=== PATIENT | female | born 1970 | race Two or more races ===

== ENCOUNTER → 2018-01-24 | Outpatient (CLI) | payer OTHER ==
[~2018-01-24] MED LIST: ACET325 PO; Percocet 5-3251 EACH PO
[2018-01-26 12:36] LABS: HPV Genotype 16 Not Detected (NOTDET); HPV Genotype 18 Not Detected (NOTDET)
[2018-02-04 11:52] LABS: HPV High Risk Other Not Detected (NOTDET)
== END | disposition home or self-care (01) ==
LOC: LAB 14:00 → LAB SHORT 14:00
PROVIDERS: Obstetrics & Gynecology
DX: Z01.419 Encounter for gynecological examination (general) (routine) without abnormal findings (principal)
CPT/HCPCS: 87624; G0123

== ENCOUNTER 2021-02-08 06:20 | Day surgery (SDC) | payer OTHER ==
[~2021-02-08] VITALS: Ht 160 cm; Wt 67.1 kg
--- NOTE | 2021-02-08 07:11 | NUR ---
02/08/21 0711 Siena Jarquin CALL LIGHT WITHIN REACH. TWO IV ATTEMPTS ONE ON RIGHT HAND AND INFILTRATED. SECOND ATTEMPT ON RIGHT WRIST AND SUCCESSFUL. PT TOLERATED IV ATTEMPTS WELL.
== END 2021-02-08 09:10 | disposition home or self-care (01) ==
LOC: ORSCSDS 06:20
PROVIDERS: Orthopaedic Surgery
PROC: 01S40ZZ Reposition Ulnar Nerve, Open Approach (ICD-10-PCS; principal; 2021-02-08 07:30)
PROC: 01N50ZZ Release Median Nerve, Open Approach (ICD-10-PCS; principal; 2021-02-08 07:30)
DX: G56.02 Carpal tunnel syndrome, left upper limb (principal); G56.21 Lesion of ulnar nerve, right upper limb
CPT/HCPCS: A9270; J0690; J1100; J2250; J2405; J2704; J2795; J3010; J7120

== ENCOUNTER 2021-10-14 01:19 | Emergency (ER) | payer OTHER ==
[~2021-10-14] VITALS: Ht 160 cm; Wt 63.5 kg
[2021-10-14 02:14] LABS: BASOPHILS ABSOLUTE AUTO 0.04 K/mm3 (0.00-0.23); BASOPHILS PERCENT AUTO 1 % (0-2); EOSINOPHILS ABSOLUTE AUTO 0.31 K/mm3 (0.00-0.68); EOSINOPHILS PERCENT AUTO 5 % (0-6); Hematocrit 39.1 % (33.0-51.0); Hemoglobin 13.1 g/dL (11.5-16.0); IMMATURE GRAN ABSOLUTE AUTO 0.02 K/mm3 (0.00-0.10); IMMATURE GRAN PERCENT AUTO 0 % (0-1); LYMPHOCYTES ABSOLUTE AUTO 3.09 K/mm3 (0.84-5.20); LYMPHOCYTES PERCENT AUTO 47 % (21-46); MONOCYTES ABSOLUTE AUTO 0.61 K/mm3 (0.16-1.47); MONOCYTES PERCENT AUTO 9 % (4-13); Mean Corpuscular HGB 28.7 pg (26.0-34.0); Mean Corpuscular HGB Conc 33.5 g/dL (31.5-36.5); Mean Corpuscular Volume 86 fL (80-100); Mean Platelet Volume 9.8 fL (9.1-12.4); NEUTROPHILS ABSOLUTE AUTO 2.48 K/mm3 (1.96-9.15); NEUTROPHILS PERCENT AUTO 38 % (41-73); Platelet Count 349 K/mm3 (150-400); RDW Standard Deviation 37.5 fL (35.1-46.3); Red Blood Cell Count 4.57 M/mm3 (3.80-5.20); White Blood Cell Count 6.55 K/mm3 (4.00-11.30)
[2021-10-14 02:36] LABS: Alanine Aminotransfer (ALT/SGP 30 U/L (12-78); Albumin, Blood 3.2 g/dL (3.4-5.0); Albumin/Globulin Ratio 0.8 (0.8-1.8); Alk Phos 92 U/L (50-136); Anion Gap 8 mmol/L (6-16); Aspartate Aminotrans (AST/SGOT 22 U/L (12-37); Bilirubin, Total 0.2 mg/dL (0.1-1.0); Blood Urea Nitrogen 10 mg/dL (8-24); Bun/Creatinine Ratio 15.5 (12.0-20.0); CO2, Blood 24 mmol/L (21-32); Calcium, Blood 8.9 mg/dL (8.5-10.1); Chloride, Blood 110 mmol/L (98-108); Creatinine, Blood 0.65 mg/dL (0.40-1.00); Glomerular Filtration Rate >60 (60-); Glucose, Blood 101 mg/dL (70-99); Potassium, Blood 3.9 mmol/L (3.5-5.5); Sodium, Blood 142 mmol/L (136-145); Total Protein, Blood 7.2 g/dL (6.4-8.2); Troponin I <0.015 ng/mL (0.000-0.040)
== END 2021-10-14 04:29 | disposition home or self-care (01) ==
LOC: ER 01:19
PROVIDERS: Emergency Medicine
DX: R07.9 Chest pain, unspecified (principal)
CPT/HCPCS: 36415; 71045; 80053; 83690; 84484; 85025; 85379; 93005; 93010; 99285-25

== ENCOUNTER → 2023-06-07 | Outpatient (CLI) | payer OTHER ==
[2023-06-08 14:09] LABS: HPV 16 Negative (Negative); HPV 18 Negative (Negative); HPV OTHER HR TYPES Negative (Negative)
== END ==
LOC: LAB 18:56 → LAB SHORT 18:56
PROVIDERS: Obstetrics & Gynecology
DX: Z01.419 Encounter for gynecological examination (general) (routine) without abnormal findings (principal)
CPT/HCPCS: 87624; G0145

== ENCOUNTER 2023-09-04 09:03 | Day surgery (SDC) | payer OTHER ==
[2023-09-04] VITALS (16 sets, daily range): BP systolic 104–150; BP diastolic 53–79
[~2023-09-04] VITALS: Ht 157.5 cm; Wt 62.7 kg
--- NOTE | 2023-09-04 10:32 | NUR ---
PATIENT'S DAUGHTER, MARCELINO, AT BEDSIDE WITH PATIENT. PATIENT COMMUNICATES WELL AND ANSWERS QUESTIONS APPROPRIATELY.
--- NOTE | 2023-09-04 11:12 | NUR ---
09/04/23 1112 Bryant Kendall HISTORY, CHART, MEDICATIONS AND ALLERGIES REVIEWED BEFORE START OF PROCEDURE. PATIENT CONFIRMS NPO STATUS AND AGREES WITH SCHEDULED PROCEDURE. 3-LEAD EKG REVIEWED WITH PHYSICIAN PRIOR TO START OF PROCEDURE. MONITOR INTACT WITH CONTINUOUS PULSE OXIMETRY,CAPNOGRAPHY, 3-LEAD EKG, INTERMITTENT BP. SUPPLEMENTAL O2 TO BE TITRATED THROUGHOUT PROCEDURE TO MAINTAIN O2 SATURATION ABOVE 90%. PATIENT DETERMINED TO BE ASA APPROPRIATE FOR PROPOFOL SEDATION PRIOR TO START OF PROCEDURE BY
--- NOTE | 2023-09-04 11:51 | NUR ---
Discharge instructions reviewed with patient. Patient verbalizes understanding. Copy given to patient to take home. Patient States Post-Procedure ride home has been arranged. Discharged via wheelchair to private car for ride home.
== END 2023-09-04 11:45 | disposition home or self-care (01) ==
LOC: ORSCMMR 09:03 → ORD 10:00 → ORSCMMR 11:45
PROVIDERS: Internal Medicine Gastroenterology
PROC: 0DBN8ZX Excision of Sigmoid Colon, Via Natural or Artificial Opening Endoscopic, Diagnostic (ICD-10-PCS; principal; 2023-09-04 10:00)
DX: Z12.11 Encounter for screening for malignant neoplasm of colon (principal); D12.5 Benign neoplasm of sigmoid colon
CPT/HCPCS: 88305; J2704; J7120

== ENCOUNTER 2024-06-30 14:47 | Emergency (ER) | payer OTHER ==
[~2024-06-30] VITALS: Ht 160 cm; Wt 65.8 kg
[2024-06-30] MEDS ORDERED: DiphenhydrAMINE HCl 50 MG/ML 1ML Vial IV ONE (15:35)
[2024-06-30] MEDS ORDERED: Ketorolac Tromethamine 30mg Vial IV ONE (15:35)
[2024-06-30] MEDS ORDERED: Droperidol 5 mg/2 ml Vial IV ONE (16:05)
[2024-06-30] MEDS ORDERED: Dexamethasone Sod Phos 10 MG/ML 1ML VIAL IV ONE (16:45)
[2024-06-30] MEDS ORDERED: PROM25 PO (17:14)
[2024-06-30] MEDS ORDERED: IBUP800 PO (17:14)
[2024-06-30 17:20] VITALS: BP 148/66
== END 2024-06-30 17:21 | disposition home or self-care (01) ==
LOC: ER 14:47
DX: R51.9 Headache, unspecified (principal)
CPT/HCPCS: 70450; 96374; 96375; 99284-25; J1100; J1200; J1790; J1885

== ENCOUNTER → 2024-07-10 | Outpatient (CLI) | payer OTHER ==
[~2024-07-10] MED LIST changes: +IBUP800 PO; +PROM25 PO
[2024-07-10 16:23] LABS: Source, Urine Clean Catch
[2024-07-10 18:14] LABS: Appearance, Urine Clear (Clear); Bilirubin, Urine Neg (Neg); Blood, Urine Neg (Neg); Color, Urine Yellow (P-Yellow); Glucose Qualitative, Urine Neg (Neg); Ketones, Urine Neg (Neg); Leukocyte Esterase, Urine 1+ (Neg); Nitrite, Urine Neg (Neg); Protein, Urine Neg (Neg); Urobilinogen, Urine NORM (Normal)
[2024-07-10 18:23] LABS: Bacteria Rare /hpf; Red Blood Cells, Urine 0-2 /hpf (0-2); Squamous Epithelial Cells Rare /hpf (Few); White Blood Cells, Urine 0-2 /hpf (0-5)
[2024-07-10 20:28] LABS: Bacterial Vaginosis PCR Negative (NEGATIVE); Candida Group, PCR NOT DETECTED (NOT DETECT); Candida glabrata-krusei, PCR NOT DETECTED (NOT DETECT)
== END | disposition home or self-care (01) ==
LOC: LAB SHORT 16:21 → LAB 16:21
PROVIDERS: Obstetrics & Gynecology
DX: N89.8 Other specified noninflammatory disorders of vagina (principal); R30.0 Dysuria
CPT/HCPCS: 81001; 87086; 87481; 87661; 87801